=== PATIENT | male | born 1990 | race Hispanic/Latino ===

== ENCOUNTER → 2020-12-26 | Outpatient (CLI) | payer MEDICAID | END | disposition home or self-care (01) | LOC: RAH 07:46 | PROVIDERS: ATTEND Physical Medicine & Rehabilitation | DX: G40.909 Epilepsy, unspecified, not intractable, without status epilepticus (principal); M54.16 Radiculopathy, lumbar region; G89.0 Central pain syndrome | CPT/HCPCS: 70551 ==